=== PATIENT | male | born 1960 | race Native Hawaiian/Other Pacific Islander ===

== ENCOUNTER 2017-11-20 00:28 | Emergency (ER) | payer OTHER ==
[~2017-11-20] VITALS: Ht 177.8 cm; Wt 81.6 kg
[2017-11-20 00:35] VITALS: BP 158/69; TEMP 97.6
== END 2017-11-20 00:47 | disposition home or self-care (01) ==
LOC: ED 00:28
DX: L30.9 Dermatitis, unspecified (principal)
CPT/HCPCS: 99281